=== PATIENT | male | born 1940 | race Caucasian/White ===

== ENCOUNTER 2018-11-21 09:32 | Outpatient (CLI) ==
[2014-11-28 10:01] VITALS: BMI 21.2
--- NOTE | 2018-11-21 10:07 | DI ---
EXAM: Chest and unilateral right ribs HISTORY: Posterior right rib pain, no known injury COMPARISON: None TECHNIQUE: Single view chest and multiple views right ribs were performed FINDINGS: No airspace consolidation. No pleural effusion. No pneumothorax. Granulomas calcificati on. Heart normal in size. Mediastinal contour normal, noting atherosclerosis. No acute abnormaliti es of the bones. Specifically, no displaced right rib fracture identified. IMPRESSION: 1. No displaced right rib fracture identified. 2. No acute cardiopulmonary process.
== END 2018-11-21 09:33 | disposition home or self-care (01) ==
LOC: RAD 09:32
PROVIDERS: ATTEND Family Medicine
DX: R07.89 Other chest pain (principal)